=== PATIENT | female | born 1985 | race Caucasian/White ===

== ENCOUNTER 2017-07-15 19:09 | Emergency (ER) | payer BC ==
[~2017-07-15] VITALS: Ht 147.3 cm; Wt 70.4 kg
[2017-07-15 19:15] VITALS: BP 112/71; PULSE 76; RESP 20; TEMP 98.3; O2SAT 98
[2017-07-15 19:45] VITALS: BP 106/68; PULSE 88; RESP 20; O2SAT 98
[2017-07-15] MEDS ORDERED: LORazepam 1 MG TAB PO ONE (19:45)
[2017-07-15] MEDS ORDERED: WELLTAB39 PO ×2 (19:59→21:14)
[2017-07-15] MEDS ORDERED: TOPI100 PO ×2 (19:59→21:14)
[2017-07-15] MEDS ORDERED: EYEDRO OP (19:59)
[2017-07-15] MEDS ORDERED: OXYC1TAB13 PO (19:59)
[2017-07-15] MEDS ORDERED: ARMO90TA PO (19:59)
[2017-07-15] MEDS ORDERED: AK-T0.3S EACH EYE (20:28)
[2017-07-15] MEDS ORDERED: PRED1SUS LEFT EYE (20:28)
--- NOTE | 2017-07-15 20:40 | RADRPT ---
EXAM DATE/TIME: 07/15/2017 20:13 [place] COMPARISON: No previous studies available for comparison. INDICATIONS : Seizure. RADIATION DOSE: 57.76 CTDIvol (mGy) MEDICAL HISTORY : None SURGICAL HISTORY : None. ENCOUNTER: Initial ACUITY: 1 day PAIN SCALE: 0/10 LOCATION: cranial TECHNIQUE: Multiple contiguous axial images were obtained of the head. Using automated exposure control and adj ustment of the mA and/or kV according to patient size, radiation dose was kept as low as reasonably a chievable to obtain optimal diagnostic quality images. DICOM format image data is available electro nically for review and comparison. FINDINGS: CEREBRUM: The ventricles are normal for age. No evidence of midline shift, mass lesion, hemorrhage or acute in farction. No extra-axial fluid collections are seen. POSTERIOR FOSSA: The cerebellum and brainstem are intact. The 4th ventricle is midline. The cerebellopontine angle i s unremarkable. EXTRACRANIAL: The visualized portion of the orbits is intact. SKULL: The calvaria is intact. No evidence of skull fracture. CONCLUSION: No acute disease. Chema Love MD on July 15, 2017 at 20:39 Board Certified Radiologist. This report was verified electronically.
[2017-07-15 20:45] VITALS: BP 100/70; PULSE 73; RESP 20; O2SAT 100
[2017-07-15] MEDS ORDERED: TOPIRAMATE 100 MG TAB PO ONE ×2 (20:45→21:15)
[2017-07-15 20:54] VITALS: PULSE 74; O2SAT 100
[2017-07-15] MEDS ORDERED: TRAM50 PO (21:14)
[2017-07-15] MEDS ORDERED: IBUP1TAB5 PO (21:14)
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
[2017-07-15] MEDS ORDERED: KETOROLAC TROMETHAMINE 60 MG/2 ML (IM) VIAL IM ONE (21:15)
[2017-07-15] MEDS ORDERED: traMADol HCL 50 MG TAB PO ONE (21:15)
[2017-07-15] MEDS ORDERED: TOPIRAMATE 25 MG TAB PO ONE (21:15)
[2017-07-15] MEDS ORDERED: ZOFR4TAB3 SL (21:33)
[2017-07-15 21:40] VITALS: BP 100/70
== END 2017-07-15 23:36 | disposition home or self-care (01) ==
LOC: PHED 19:09
DX: R51 Headache (principal); G40.909 Epilepsy, unspecified, not intractable, without status epilepticus
CPT/HCPCS: 70450; 96372; 99283; J1885